=== PATIENT | male | born 1980 | race Two or more races ===

== ENCOUNTER 2018-12-17 11:39 | Emergency (ER) | payer BC, MEDICAID, OTHER ==
[~2018-12-17] VITALS: Ht 180.3 cm; Wt 128.4 kg
[~2018-12-17 11:39] MED LIST: DOCU-144 PO; FER325 PO; OMEG-135 PO
[2018-12-17 11:41] VITALS: BP 134/92; PULSE 89; RESP 18; Ht 180.3 cm; Wt 128.4 kg
[2018-12-17] MEDS ORDERED: ONDA4TAB14 PO (12:17)
[2018-12-17] MEDS ORDERED: NAPR-985 PO (12:17)
[2018-12-17] MEDS ORDERED: HYDR-4011 PO (12:17)
--- NOTE | 2018-12-17 12:43 | ERD ---
ER Documentation Chief Complaint Chief Complaint pt bib self with c/o right leg pain wants MRI HPI 38-year-old male presenting with pain to his right leg. Patient had surgery 2 years ago after he broke his leg and had a may placed. He has had continued pain ever since and he wants an MRI today to determine the cause of his pain. He denies any numbness or tingling. Denies any swelling or recent falls. Has not taken medications for symptoms. Medical history is colon cancer. NKDA. Surgical history leg surgery and colon resection 3 years ago. Social history denies ROS All systems reviewed and are negative except as per history of present illness. Medications Home Meds Active Scripts Ondansetron (Ondansetron Odt) 4 Mg Tab.rapdis, 4 MG PO Q6H PRN for NAUSEA AND/OR VOMITING, #10 TAB Prov:АНДРЕЙ CLAROS PA-C 12/17/18 Naproxen* (Naprosyn*) 500 Mg Tablet, 500 MG PO BID PRN for PAIN AND/OR INFLAMMATION, #30 TAB Prov:АНДРЕЙ CLAROS PA-C 12/17/18 Hydrocodone/Acetaminophen ([place] 5-325 Tablet) 1 Each Tablet, 1 TAB PO Q6H PRN for PAIN, #7 TAB Prov:АНДРЕЙ CLAROS PA-C 12/17/18 Fish Oil* (Fish Oil*) 1,000 Mg Cap, 1000 MG PO BID for 30 Days, CAP Prov:MEENUDARIELAATITO M. 03/24/15 Docusate Sodium* (Colace*) 100 Mg Capsule, 100 MG PO BID for 30 Days, CAP Prov:MEENU,DARIELAATITO M. 03/24/15 Ferrous Sulfate* (Ferrous Sulfate*) 325 Mg Tabec, 325 MG PO BID for 30 Days, TAB Prov:MEENU,BOLATITO M. 03/24/15 Allergies Allergies: Coded Allergies: No Known Allergy (Unverified , 03/21/15) PMhx/Soc History of Surgery: Yes (RIGHT LEG MAY, COLON) Anesthesia Reaction: No Hx Neurological Disorder: No Hx Respiratory Disorders: No Hx Cardiac Disorders: No Hx Psychiatric Problems: No Hx Miscellaneous Medical Probl: Yes (COLON CA) Hx Alcohol Use: Yes (SOMETIMES) Hx Substance Use: No Hx Tobacco Use: Yes (1/2 PACK TO 1 PACK A DAY) Smoking Status: Former smoker FmHx Family History: No diabetes, No coronary disease, No other Physical Exam Vitals Vital Signs Date Temp Pulse Resp B/P (MAP) Pulse Ox O2 O2 Flow FiO2 Time Delivery Rate 12/17/18 98.0 89 18 134/92 97 11:41 (106) Physical Exam GENERAL: The patient is well-appearing, well-nourished, in no acute distress CHEST: Clear to auscultation bilaterally. There are no rales, wheezes or rhonchi. HEART: Regular rate and rhythm. No murmurs, clicks, rubs or gallops. EXTREMITIES: Equal pulses bilaterally. There is no peripheral clubbing, cyanosis or edema. No focal swelling or erythema. Full range of motion. Grossly neurovascularly intact. NEUROLOGIC: Alert and oriented. Cranial nerves II through XII intact. Motor strength in all 4 extremities with 5 out of 5 strength. Sensation grossly intact. Normal speech and gait. SKIN: There is no apparent rash or petechiae. The skin is warm and dry. Procedures/MDM MDM: 38-year-old male presenting with chronic pain to his right leg. I have low suspicion for acute fracture dislocation. I have low suspicion for infectious process. I have low suspicion for tendon or ligament rupture. I will suspicion for neuro deficit. Patient likely has chronic pain from surgery and does not require intervention at this time. There is no indication for an emergent MRI at today's visit. Patient is told to follow-up with orthopedist and obtain MRI at that time. Patient is discharged with strict ER precautions. All questions answered at discharge Departure Diagnosis: Primary Impression: Foot pain Condition: Stable Patient Instructions: Muscle Strain, Extremity Referrals: TANIA AGUILAR MD [facility] Hours: Fri-Fri 9:00 AM - 5:00 PM Additional Instructions: FOLLOW UP WITH YOUR PRIMARY CARE PHYSICIAN TOMORROW.Return to this facility if you are not improving as expected. АНДРЕЙ CLAROS PA-C Dec 17, 2018 12:43
== END 2018-12-17 14:33 | disposition home or self-care (01) ==
LOC: FTE 11:39
DX: M79.671 Pain in right foot (principal); Z85.038 Personal history of other malignant neoplasm of large intestine; Z87.891 Personal history of nicotine dependence
CPT/HCPCS: 99283